=== PATIENT | female | born 1975 | race Caucasian/White ===

== ENCOUNTER → 2016-06-22 | Outpatient (CLI) | payer OTHER ==
--- NOTE | 2016-06-22 13:14 | MA ---
Bilateral Digital diagnostic Mammograms With iCAD Clinical Indications: Probable benign findings on previous mammograms. Palpable abnormality in the ri ght breast upper-inner quadrant. Technique: Digital cephalocaudal and mediolateral oblique projections were obtained. Additional rep eat left CC for motion, and true lateral views of the left breast. [facility]. Comparison: Baseline mammogram November 2015 Breast density: B. Findings: CAD was reviewed. Both breasts demonstrate no new dominant densities, suspicious clustered microcalcifications, or architectural distortion. Impression: 1. BI-RADS 0: Needs additional imaging evaluation. 2. No suspicious findings on mammography. Recommendation: Additional ultrasound of the upper-inner quadrant of the right breast for palpable ab normality. Please see ultrasound report and recommendations.
--- NOTE | 2016-06-22 14:20 | US ---
Ultrasound right Breast History: Palpable abnormality in right breast 12-2 o'clock position. Comparison: Multiple prior mammograms most recent from today. Technique: Ultrasound imaging of the upper-inner quadrant of the right breast from the 10 to the 3 o' clock position was performed by the supersonic engineer and myself. Findings: No ultrasound evidence of dominant solid or cystic lesion in the right breast upper-inner q uadrant. There is a band of palpable tissue, which appears ridgelike in the upper-outer right breast corresponding to the area of palpable concern. However, no ultrasound evidence of dominant solid or c ystic lesion. On the mammogram there is no evidence of suspicious finding. Impression: 1. BI-RADS 1: Negative ultrasound of the right breast. 2. No ultrasound evidence of dominant solid or cystic lesion in the right breast upper-inner quadrant . 3. Recommend continued clinical monitoring and treatment based on clinical suspicion. 4. Recommend annual mammograms with next bilateral screening mammograms June 2017. Findings and recommendations have been discussed with the patient who agrees with the plan.
== END ==
LOC: BMCIMAGING 12:21
PROVIDERS: ATTEND Nurse Practitioner
DX: Z12.39 Encounter for other screening for malignant neoplasm of breast (principal); R92.8 Other abnormal and inconclusive findings on diagnostic imaging of breast

== ENCOUNTER 2016-09-02 05:59 | Day surgery (SDC) | payer OTHER ==
[2016-09-02] MEDS ORDERED: LIDO/EPI 1% **Not for Epidural 20 ML MDV ONE (06:56)
[2016-09-02] MEDS ORDERED: SILVER NITRATE APPLICATOR 1 APPL TP ONE (06:57)
[2016-09-02] MEDS ORDERED: LIDOCAINE 1% 30 ML SDV ONE (06:58)
[2016-09-02] MEDS ORDERED: LIDOCAINE 2% 5 ML SDV ONE ×2 (06:58→07:16)
[2016-09-02] MEDS ORDERED: LIDOCAINE 1% 5 ML SDV ID PRN (06:59)
[2016-09-02] MEDS ORDERED: LR 1,000 ML IV ONE (06:59)
[2016-09-02] MEDS ORDERED: MIDAZOLAM 2 MG/2 ML VIAL ONE (07:04)
[2016-09-02 07:05] LABS: % IMMATURE GRANULYOCYTES 0.4 % (0.0-1.1); ABSOLUTE IMMATURE GRANULOCYTES 0.03 10^3/uL (0.00-0.10); ADD DIFF? NO; ADD MORPH? NO; ADD SCAN? NO; ATYPICAL LYMPHOCYTE FLAG 0 (0-99); FRAGMENT RBC FLAG 0 (0-99); HEMATOCRIT 38.5 % (38.0-47.0); HEMOGLOBIN 13.2 g/dL (12.6-16.3); LEFT SHIFT FLG 0 (0-99); LIPEMIA HEMOLYSIS FLAG 90 (0-99); MEAN CELL HEMOGLOBIN 30.6 pg (27.9-34.1); MEAN CELL HEMOGLOBIN CONCENTR. 34.3 g/dL (32.4-36.7); MEAN CELL VOLUME 89.3 fL (81.5-99.8); MEAN PLATELET VOLUME 9.3 fL (8.7-11.7); PLATELET CLUMPS FLAG 20 (0-99); PLATELET COUNT 401 10^3/uL (150-400); RED BLOOD CELL COUNT 4.31 10^6/uL (4.18-5.33); RED CELL DISTRIBUTION WIDTH 13.2 % (11.5-15.2)
[2016-09-02] MEDS ORDERED: fentaNYL 100 MCG/2 ML INJ ONE (07:16)
[2016-09-02] MEDS ORDERED: PROPOFOL 200 MG/20 ML VIAL ONE (07:16)
[2016-09-02] MEDS ORDERED: LIDOCAINE 2% JELLY 5 ML TUBE ONE (07:17)
[2016-09-02] MEDS ORDERED: ONDANSETRON 4 MG/2 ML VIAL ONE (07:17)
[2016-09-02] MEDS ORDERED: DEXAMETHASONE 4 MG/ML VIAL ONE ×2 (07:17)
[2016-09-02 07:20] LABS: COLOR YELLOW; LEUKOCYTE ESTERASE,URINE NEGATIVE (NEGATIVE); NITRITE,URINE NEGATIVE (NEGATIVE)
[2016-09-02] MEDS ORDERED: KETOROLAC 30 MG/1 ML SDV ONE (07:59)
--- NOTE | 2016-09-02 08:58 | GOP ---
[f rep st] OPERATIVE REPORT DATE OF OPERATION: 09/02/2016 SURGEON: Adelita Ferrer MD RELOCATION COMMISSIONER: None. ANESTHESIA: LMA. PREOPERATIVE DIAGNOSIS: Menorrhagia and endometrial polyp. POSTOPERATIVE DIAGNOSIS: Menorrhagia and endometrial polyp. PROCEDURE PERFORMED: Hysteroscopy, polypectomy. FINDINGS: Two endometrial polyps approximately 1 cm in size each. SPECIMENS: Endometrial polyp. ESTIMATED BLOOD LOSS: Less than 10 mL. INDICATIONS: The patient is a 40-year-old female, who was having menorrhagia and on pelvic ultrasound revealed a 1 cm endometrial polyp and desired management. DESCRIPTION OF PROCEDURE: The patient was taken to the operating room, where she was prepped and draped in normal sterile fashion in the dorsal supine position with a leftward tilt. The patient emptied her bladder prior to the procedure. A surgical time-out was performed verifying the patient's name, date of , planned procedure, and site. A bivalve speculum was placed in the patient's vagina. The anterior aspect of the cervix was grasped with single -tooth tenaculum, and the bivalve speculum was removed. The patient received a paracervical block of 1% lidocaine of 10 mL. The cervix was dilated to 6 mm. The hysteroscope was placed into the uterine cavity. Two endometrial polyps were visualized, which were removed with the Truclear blade. Fluid deficit was 60 mL. Otherwise, the patient had a normal uterine cavity. The tenaculum was removed. Hemostasis was obtained with silver nitrate, and the bivalve speculum was removed. COMPLICATIONS: None. OUTCOME: Stable to recovery room. /[id number]/MODL MTDD
== END 2016-09-02 09:29 | disposition home or self-care (01) ==
LOC: FSGY 05:59
PROVIDERS: ATTEND Obstetrics & Gynecology
PROC: 0UDB8ZX Extraction of Endometrium, Via Natural or Artificial Opening Endoscopic, Diagnostic (ICD-10-PCS; principal; 2016-09-02 07:30)
DX: N84.0 Polyp of corpus uteri (principal); N92.4 Excessive bleeding in the premenopausal period
CPT/HCPCS: C1782; J1100; J1885; J2250; J2405; J2704; J3010